=== PATIENT | female | born 1975 | race Caucasian/White ===

== ENCOUNTER 2025-02-13 05:25 | Inpatient (IN) | payer OTHER ==
[~2025-02-13] VITALS: Ht 162.6 cm; Wt 72.7 kg
[2025-02-13] MEDS ORDERED: TRIAMCINOLONE ACETONIDE SUSP 40 MG/ML 1 ML ONE (06:50)
[2025-02-13] MEDS ORDERED: ANESTHESIA TRAY IN PYXIS 1 EA TRAY MC ONE (06:50)
[2025-02-13] MEDS ORDERED: HEMOSTATIC MATRIX 8 ML 1 EACH PAD MC ONE ×4 (06:50→11:09)
[2025-02-13] MEDS ORDERED: HEPARIN SODIUM, PORCINE 5000 UNITS/1 ML VIAL ONE (06:51)
[2025-02-13] MEDS ORDERED: CEFAZOLIN 1 GM ONE (06:51)
[2025-02-13] MEDS ORDERED: LIDOCAINE 0.5%-EPI 1:200,000 50 ML VIAL ONE (06:51)
[2025-02-13 07:17] LABS: PREGNANCY TEST URINE QUAL NEGATIVE (NEGATIVE)
[2025-02-13] MEDS ORDERED: FENTANYL PF 250MCG/5ML AMPUL ONE (07:18)
[2025-02-13] MEDS ORDERED: ROCURONIUM BROMIDE 50 MG/5 ML ONE ×2 (07:19→11:21)
[2025-02-13] MEDS ORDERED: VANCOMYCIN 1 GM VIAL ONE (07:43)
[2025-02-13] MEDS ORDERED: EPINEPHRINE (1:1000) 1 MG/ML AMPUL ONE (08:47)
[2025-02-13] MEDS ORDERED: GENTAMICIN 80 MG/2 ML VIAL ONE (09:51)
[2025-02-13] MEDS ORDERED: FENTANYL PF 100MCG/2ML AMPUL ONE ×2 (13:17→13:35)
[2025-02-13] MEDS ORDERED: ACETAMINOPHEN 325 MG TABLET PO PRN ×2 (15:30→18:00)
[2025-02-13] MEDS ORDERED: DOCUSATE SODIUM 250 MG CAPSULE PO PRN (15:30)
[2025-02-13] MEDS ORDERED: BISACODYL SUPP (10 MG) 10 MG/SUPP.RECT SUPP.RECT RC PRN (15:30)
[2025-02-13] MEDS: IV NS W/20MEQ KCL 1L IV SCH (15:56)
[2025-02-13 16:00] VITALS: BP 101/62; TEMP 98.1; O2SAT 99
[2025-02-13] MEDS: HYDROMORPHONE 1 MG/1 ML DISP.SYRIN IV PRN (17:03)
[2025-02-13 20:00] VITALS: BP 110/80; TEMP 98.1; O2SAT 97
[2025-02-13] MEDS: ONDANSETRON HCL/PF 4 MG/2 ML VIAL IV PRN (22:49)
[2025-02-14 06:57] LABS: CREATININE 0.7 mg/dL (0.6-1.3); PHOSPHORUS 2.8 mg/dL (2.5-4.9); POTASSIUM 4.2 mmol/L (3.5-5.1)
[2025-02-14 07:01] LABS: BASOPHILS % (AUTO) 0.1 % (0.0-2.0); HEMATOCRIT 29 % (33-45); HEMOGLOBIN 9.7 g/dL (11.5-14.8); LYMPHOCYTES # (AUTO) 1.5 K/uL (0.8-4.8); LYMPHOCYTES % (AUTO) 7.7 % (20.0-44.0); MEAN CORPUSCULAR HEMOGLOBIN 28 PG (26.0-33.0); MEAN CORPUSCULAR HGB CONC 33 g/dl (31.0-36.0); MEAN CORPUSCULAR VOLUME 85 fL (82-100); MONOCYTES # (AUTO) 1.1 K/uL (0.1-1.30); MONOCYTES % (AUTO) 5.9 % (2.0-12.0); NEUTROPHILS # (AUTO) 16.5 K/uL (1.8-8.9); NEUTROPHILS % (AUTO) 86.3 % (43.0-81.0); PLATELET COUNT (AUTO) 247 K/uL (150-450); RED BLOOD CELL COUNT(AUTO) 3.43 MIL/uL (4.0-5.2); RED CELL DISTRIBUTION WIDTH 13.6 % (11.5-15.0); WHITE BLOOD COUNT (AUTO) 19.1 K/uL (4.3-11.0)
[2025-02-14 07:30] VITALS: BP 103/67; TEMP 98.1; O2SAT 100
[2025-02-14] MEDS: VANCOMYCIN 1 GM in IV D5W 250ml IV SCH (08:34)
[2025-02-14 16:00] VITALS: BP 104/74; TEMP 98.1; O2SAT 96
[2025-02-14 20:00] VITALS: BP 98/62; TEMP 97.9; O2SAT 100
[2025-02-14] MEDS: MAG HYDROX/AL HYDROX/SIMETH 30 ML UDC PO PRN (20:46)
[2025-02-15 06:44] LABS: BASOPHILS % (AUTO) 0.3 % (0.0-2.0); EOSINOPHILS % (AUTO) 0.2 % (0.0-6.0); HEMATOCRIT 27 % (33-45); HEMOGLOBIN 8.9 g/dL (11.5-14.8); LYMPHOCYTES % (AUTO) 23.8 % (20.0-44.0); MEAN CORPUSCULAR HEMOGLOBIN 29 PG (26.0-33.0); MEAN CORPUSCULAR HGB CONC 33 g/dl (31.0-36.0); MEAN CORPUSCULAR VOLUME 86 fL (82-100); MONOCYTES % (AUTO) 7.6 % (2.0-12.0); NEUTROPHILS # (AUTO) 8.6 K/uL (1.8-8.9); NEUTROPHILS % (AUTO) 68.1 % (43.0-81.0); PLATELET COUNT (AUTO) 239 K/uL (150-450); RED BLOOD CELL COUNT(AUTO) 3.11 MIL/uL (4.0-5.2); RED CELL DISTRIBUTION WIDTH 14.4 % (11.5-15.0); WHITE BLOOD COUNT (AUTO) 12.6 K/uL (4.3-11.0)
[2025-02-15 08:00] VITALS: BP 114/47; TEMP 98.1; O2SAT 99
[2025-02-15 08:01] LABS: CALCIUM, SERUM 8.7 mg/dL (8.5-10.1); CREATININE 0.5 mg/dL (0.6-1.3); MAGNESIUM 2.2 mg/dL (1.8-2.4); PHOSPHORUS 2.1 mg/dL (2.5-4.9); POTASSIUM 4.2 mmol/L (3.5-5.1)
[2025-02-15] MEDS: HEPARIN SODIUM, PORCINE 5000 UNITS/1 ML VIAL SQ SCH (09:21)
[2025-02-15] MEDS ORDERED: Z GUARD REMEDY 4 OZ OINT TP PRN (10:30)
[2025-02-15] MEDS: Z GUARD REMEDY 4 OZ OINT TP SCH (11:07)
[2025-02-15] MEDS: K PHOS NEUTRAL 250 MG TABLET PO ONE (15:49)
[2025-02-15 16:16] VITALS: BP 97/58; TEMP 98.1; O2SAT 94
[2025-02-15] MEDS: HYDROCODONE/APAP 10/325MG TABLET PO PRN (16:59)
[2025-02-15 20:00] VITALS: BP 94/51; TEMP 98.2; O2SAT 100
[2025-02-16] MEDS: ZOLPIDEM TARTRATE 5 MG TABLET PO PRN (01:02)
[2025-02-16 07:00] VITALS: BP 98/61; TEMP 97.4; O2SAT 99
[2025-02-16 09:56] LABS: BASOPHILS # (AUTO) 0.1 K/uL (0.0-0.2); BASOPHILS % (AUTO) 0.6 % (0.0-2.0); EOSINOPHILS # (AUTO) 0.2 K/uL (0.0-0.7); EOSINOPHILS % (AUTO) 1.8 % (0.0-6.0); HEMATOCRIT 29 % (33-45); HEMOGLOBIN 9.8 g/dL (11.5-14.8); LYMPHOCYTES # (AUTO) 3.6 K/uL (0.8-4.8); LYMPHOCYTES % (AUTO) 29.2 % (20.0-44.0); MEAN CORPUSCULAR HEMOGLOBIN 29 PG (26.0-33.0); MEAN CORPUSCULAR HGB CONC 34 g/dl (31.0-36.0); MEAN CORPUSCULAR VOLUME 85 fL (82-100); MONOCYTES # (AUTO) 0.8 K/uL (0.1-1.30); MONOCYTES % (AUTO) 6.6 % (2.0-12.0); NEUTROPHILS # (AUTO) 7.7 K/uL (1.8-8.9); NEUTROPHILS % (AUTO) 61.8 % (43.0-81.0); PLATELET COUNT (AUTO) 263 K/uL (150-450); RED BLOOD CELL COUNT(AUTO) 3.38 MIL/uL (4.0-5.2); WHITE BLOOD COUNT (AUTO) 12.4 K/uL (4.3-11.0)
[2025-02-16 10:21] LABS: CALCIUM, SERUM 8.9 mg/dL (8.5-10.1); CREATININE 0.5 mg/dL (0.6-1.3); MAGNESIUM 2.1 mg/dL (1.8-2.4); PHOSPHORUS 3.4 mg/dL (2.5-4.9); POTASSIUM 4.2 mmol/L (3.5-5.1)
[2025-02-16 16:00] VITALS: BP 121/49; TEMP 98.1; O2SAT 100
[2025-02-16 20:00] VITALS: BP 147/95; TEMP 98.4; O2SAT 97
[2025-02-16] MEDS ORDERED: CYCLOBENZAPRINE 10 MG TABLET PO PRN (21:00)
[2025-02-16] MEDS: HYDROCODONE/APAP 10/325MG TABLET PO PRN (21:27)
[2025-02-16] MEDS ORDERED: dexAMETHasone 1 MG TABLET PO SCH (22:00)
[2025-02-16 22:02] VITALS: BP 147/95; TEMP 98.4; O2SAT 97
[2025-02-16] MEDS: dexAMETHasone 4 MG TABLET PO SCH (22:12)
[2025-02-16] MEDS: SENNOSIDES 8.6 MG TABLET PO PRN (22:12)
[2025-02-16] MEDS ORDERED: LORAZEPAM 1 MG TABLET PO PRN (23:00)
[2025-02-17 07:30] VITALS: BP 108/63; TEMP 97.5; O2SAT 99
[2025-02-17] MEDS: ONDANSETRON HCL/PF 4 MG/2 ML VIAL IVP PRN (10:58)
[2025-02-17] MEDS: LACTULOSE 10 G/15 ML UDC (PYXIS) PO ONE (11:57)
[2025-02-17] MEDS ORDERED: CYCL10TA9 PO (13:26)
[2025-02-17] MEDS: NA PHOS,M-B/NA PHOS,DI-BA 1 EA ENEMA RC PRN (14:50)
[2025-02-17 16:00] VITALS: BP 100/45; TEMP 98.4; O2SAT 96
[2025-02-17 20:00] VITALS: BP 110/49; TEMP 98.4; O2SAT 96
== END 2025-02-18 11:30 | disposition home health service (06) | DRG 402 ==
LOC: DS 05:25 → MED 15:07
PROVIDERS: ADMIT Nurse Practitioner Acute Care; ATTEND Student in an Organized Health Care Education/Training Program
PROC: 0SG0071 Fusion of Lumbar Vertebral Joint with Autologous Tissue Substitute, Posterior Approach, Posterior Column, Open Approach (ICD-10-PCS; 2025-02-13)
PROC: 01NB0ZZ Release Lumbar Nerve, Open Approach (ICD-10-PCS; 2025-02-13)
PROC: 0SB20ZZ Excision of Lumbar Vertebral Disc, Open Approach (ICD-10-PCS; 2025-02-13)
PROC: 0QP004Z Removal of Internal Fixation Device from Lumbar Vertebra, Open Approach (ICD-10-PCS; 2025-02-13)
PROC: 0SG00AJ Fusion of Lumbar Vertebral Joint with Interbody Fusion Device, Posterior Approach, Anterior Column, Open Approach (ICD-10-PCS; principal; 2025-02-13 07:30)
DX: M51.26 Other intervertebral disc displacement, lumbar region (principal); D68.59 Other primary thrombophilia; E66.9 Obesity, unspecified; D64.9 Anemia, unspecified; K59.00 Constipation, unspecified; D72.829 Elevated white blood cell count, unspecified; E88.89 Other specified metabolic disorders; M48.061 Spinal stenosis, lumbar region without neurogenic claudication; M12.88 Other specific arthropathies, not elsewhere classified, other specified site; M54.16 Radiculopathy, lumbar region; Z68.27 Body mass index [BMI] 27.0-27.9, adult
CPT/HCPCS: 36415; 72100-TC; 80048-TC; 83735-TC; 84100-TC; 84703-TC; 85025-TC; 97110-TC; 97116-TC; 97530-TC; A4223; C1713; C1889; G0378; J0171; J0330; J0461; J0690; J1171; J1580; J1644; J1885; J2405; J2704; J3010; J3370; J3480; J3490; J7030; J7060; J8540